=== PATIENT | female | born 1990 | race Asian ===

== ENCOUNTER 2019-07-05 02:52 | Emergency (ER) | payer OTHER ==
[~2019-07-05] VITALS: Ht 160 cm; Wt 68.0 kg
[2019-07-05 03:10] VITALS: BP 151/109
--- NOTE | 2019-07-05 03:10 | NUR ---
ED Nurse Note: pT AMBULATED TO ED FROM HOME C/O 01/04 HEADACHE LASTING SINCE TUESDAY, PT TRIED IBUPROFEN TO NO RELIEF, WAS SEEN YESTERDAY AT URGENT CARE FOR SAME REASON, NO RELIEF. vss, pT IS A&OX4, ERMD AT BEDSIDE
--- NOTE | 2019-07-05 03:11 | Emergency Room Report ---
History of Present Illness General Chief Complaint: Headache Source: Patient Present Illness HPI Disclaimer: Please note that this report is being documented using [employer] technology. This can lead to erroneous entry secondary to incorrect interpretation by the dictating instrument. HPI: 28-year-old female history of migraines presents for evaluation of headache. Complains of throbbing 10/10 headache over the past few days. Trying to control at home with ibuprofen and was seen at urgent care today where she received a drip of some sort. She does not know what medication was and that drip. Resolved her headache for a brief time but is now returning. Throbbing around the eyes and the temples mostly. Consistent with prior headaches though this is lasting longer than usual. She was vomiting yesterday but reports only nausea without vomiting today. Denies possibility of - tested negative earlier at urgent care. Otherwise denies fever, chills, neck pain or stiffness, chest pain, shortness of breath, abdominal pain , diarrhea, cough. PMH: Migraine headaches PSH: Denies Allergies: Denies Social Hx: Denies Allergies: Coded Allergies: No Known Allergies (Unverified , 07/05/19) COVID-19 Screening Contact w/high risk pt: No Recent Travel to affected area: No Experienced COVID-19 symptoms?: No Patient History Last Menstrual Period: 06/20/19 Now: No : 0 Para: 0 Nursing Documentation-PMH Past Medical History: No Stated History Review of Systems All Other Systems: negative except mentioned in HPI Physical Exam Vital Signs Date Time Temp Pulse Resp B/P (MAP) Pulse Ox O2 Delivery O2 Flow Rate FiO2 07/05/19 02:58 98.2 80 16 151/109 (123) 94 Room Air General: Awake and alert, no acute distress HEENT: NC/AT. EOMI. PERRLA. Visual joya are full. No nystagmus. Facial expressions are symmetrical. No facial droop. Cardiovascular: RRR. S1 and S2 normal. No murmur appreciated Resp: Normal work of breathing. No cough, wheezing or crackles appreciated Abdomen: Abdomen is soft, nondistended. Nontender Skin: Intact. No abrasions, laceration or rash over the exposed skin MSK: Normal tone and bulk. Moving all extremities. No obvious deformity. There is no drift in the upper or lower extremities bilaterally. Neuro: Awake and alert. Mentating appropriately. Facial expression symmetrical. No dysarthria. Sensation to light touch is intact over the upper and lower extremities. The patient has intact speech with good repetition, comprehension. Fund of knowledge is full. No aphasia, no neglect. NIH: 0 Medical Decision Making Diagnostic Impression: Primary Impression: Migraine ER Course 28-year-old female presenting for evaluation of headache. Differential includes but is not limited to generalized headache, migraine headache, tension headache, cluster headache, giant cell arteritis, vasculitis, meningitis to name a few. Patient is nontoxic-appearing, very little concern for intracranial process or infectious process. Given her history of migraines and its typical presentation believe this is a migraine headache. Attempted a sphenopalatine block with lidocaine the patient did have some response though required additional treatment with IV fluids, Toradol, Reglan and Benadryl. Her headache is now significantly improved. Currently a 4/10 and continues to get better. Do not believe she requires emergent imaging at this time. Will prescribe Imitrex and continue Excedrin. She will follow-up with her PMD on an outpatient basis. I recommended referral to neurology as she gets these headaches regularly. Patient is well-appearing and stable for outpatient follow -up. Discussed reasons to return to the emergency department. She understands and agrees the treatment plan. Last Vital Signs Date Time Temp Pulse Resp B/P (MAP) Pulse Ox O2 Delivery O2 Flow Rate FiO2 07/05/19 02:58 98.2 80 16 151/109 (123) 94 Room Air Disposition: HOME, SELF-CARE Condition: Improved Scripts Sumatriptan Succinate* (IMITREX*) 50 Mg Tablet 50 MG ORAL DAILY PRN MIGRAINE, #10 TAB Prov: Patricio Pugh MD 07/05/19 Aspirin/Acetaminophen/Caffeine (EXCEDRIN MIGRAINE CAPLET) 1 Each Tablet 1 EACH PO TID for 10 Days, #30 TAB Prov: Patricio Pugh MD 07/05/19 Patricio Pugh MD Jul 05, 2019 03:11
[2019-07-05] MEDS ORDERED: Lidocaine 4% Amp 5ml INJ ONE (03:15)
[2019-07-05] MEDS ORDERED: Lidocaine 2% 100mg/5ml Carp ONE (03:30)
[2019-07-05] MEDS ORDERED: Metoclopramide 10mg/2ml Inj IVP ONE (04:00)
[2019-07-05] MEDS ORDERED: DiphenhydrAMINE 50mg/ml Inj IVP ONE (04:00)
[2019-07-05] MEDS ORDERED: Ketorolac 30mg Inj IV ONE (04:00)
[2019-07-05] MEDS ORDERED: IMITREX50 MG ORAL (05:08)
[2019-07-05] MEDS ORDERED: EXCEDRIN MIGRA1 EAC1 PO (05:08)
[2019-07-05 05:30] VITALS: BP 151/109
[2019-07-05] MEDS ORDERED: Acetaminophen 500mg (ES) tab ORAL ONE (05:30)
[2019-07-05] MEDS ORDERED: Lidocaine 2% 100mg/5ml Carp IV ONE (05:30)
--- NOTE | 2019-07-05 05:30 | NUR ---
ER DISCHARGE NOTE: Patient is cleared to be discharged per ERMD, pt is aox4, on room air, with stable vital signs. pt was given dc and prescription instructions, pt was able to verbalize understanding, pt id band and iv site removed without complications. pt is able to ambulate with steady gait. pt took all belongings.
== END 2019-07-05 05:30 | disposition home or self-care (01) ==
LOC: EMR 03:25
DX: G43.909 Migraine, unspecified, not intractable, without status migrainosus (principal); R11.0 Nausea
CPT/HCPCS: 96361; 96374; 96375; 99284; J1200; J1885; J2765; J7030

== ENCOUNTER 2019-07-07 09:05 | Emergency (ER) | payer OTHER ==
[~2019-07-07] VITALS: Ht 160 cm; Wt 68.0 kg
[~2019-07-07 09:05] MED LIST: EXCEDRIN MIGRA1 EAC1 PO; IMITREX50 MG ORAL
--- NOTE | 2019-07-07 09:15 | NUR ---
ED Nurse Note: Pt ambulated to ED from home. per pt., she was seen by Dr. Pugh on 07/04 told her that she can get CT head for her headaches if it is getting worse Pt. cannot get a referral for a neurology b/c she does not have a pcp. VSS, afebrile on triage. Placed on bed.
[2019-07-07] MEDS ORDERED: Ketorolac 30mg Inj ONE (09:26)
[2019-07-07] MEDS ORDERED: Metoclopramide 10mg/2ml Inj ONE (09:26)
[2019-07-07] MEDS ORDERED: Ketorolac 30mg Inj IV ONE (09:30)
[2019-07-07] MEDS ORDERED: Metoclopramide 10mg/2ml Inj IVP ONE (09:30)
--- NOTE | 2019-07-07 09:38 | Emergency Room Report ---
History of Present Illness General Chief Complaint: Headache Source: Patient Present Illness HPI 28-year-old female presents ED for headache. Started a few days ago. Frontal, throbbing, 8 out of 10, nonradiating. Notes pulsing sensation behind both eyes. Denies nausea or vomiting. Denies fevers or chills. Denies neck stiffness. Was seen in urgent care a few days ago. Was seen yesterday in ED. Was treated and subsequently discharged. Patient was offered option for CT yesterday but she declined. States that her headache is returning. States that her mother has a history of chronic migraines. Denies sick contacts or recent travel. Denies fevers or chills. Denies cough or congestion. No other aggravating relieving factors. Denies any other associated symptoms Allergies: Coded Allergies: No Known Allergies (Unverified , 07/05/19) COVID-19 Screening Contact w/high risk pt: No Recent Travel to affected area: No Experienced COVID-19 symptoms?: No Patient History Past Medical History: none Past Surgical History: none Pertinent Family History: none Social History: Denies: smoking, alcohol use, drug use Last Menstrual Period: 05/31/19 Now: No Immunizations: UTD Reviewed Nursing Documentation: PMH: Agreed; PSxH: Agreed Nursing Documentation-PMH Past Medical History: No History, Except For Review of Systems All Other Systems: negative except mentioned in HPI Physical Exam Vital Signs Date Time Temp Pulse Resp B/P (MAP) Pulse Ox O2 Delivery O2 Flow Rate FiO2 07/07/19 09:09 98.1 86 19 140/94 (109) 95 Room Air Sp02 EP Interpretation: reviewed, normal General Appearance: no apparent distress, alert, GCS 15, non-toxic Head: normocephalic, atraumatic Eyes: bilateral eye normal inspection, bilateral eye PERRL ENT: hearing grossly normal, normal pharynx, no angioedema, normal voice Neck: full range of motion, no meningismus, supple/symm/no masses Respiratory: chest non-tender, lungs clear, normal breath sounds, speaking full sentences Cardiovascular #1: regular rate, rhythm, no edema Cardiovascular #2: 2+ carotid (R), 2+ carotid (L), 2+ radial (R), 2+ radial (L) , 2+ dorsalis pedis (R), 2+ dorsalis pedis (L) Gastrointestinal: normal bowel sounds, non tender, soft, non-distended, no guarding, no rebound Rectal: deferred Genitourinary: normal inspection, no CVA tenderness Musculoskeletal: back normal, normal range of motion, gait/station normal, non- tender Neurologic: alert, motor strength/tone normal, retail aide III-XII nml as tested, oriented x3, sensory intact, cerebellar normal, responsive, speech normal Psychiatric: judgement/insight normal, memory normal, mood/affect normal, no suicidal/homicidal ideation Reflexes: 3+ bicep (R), 3+ bicep (L), 3+ tricep (R), 3+ tricep (L), 3+ knee (R) , 3+ knee (L) Lymphatic: no adenopathy Medical Decision Making Diagnostic Impression: Primary Impression: Migraine Qualified Codes: G43.909 - Migraine, unspecified, not intractable, without status migrainosus ER Course Hospital Course 28-year-old female presents with persistent headaches. Seen here 2 days ago for headache Differential diagnoses include: tension headache, migraine, dehydration, intracranial bleed Clinical course Patient placed on stretcher. After initial history and physical I ordered IV fluids, Reglan, Toradol and CT head CT head negative. On reassessment pain improved. No focal deficits. Family history of migraine. Exam consistent with migraine. Will discharge home. She does not have a PMD. I will provide referrals patient would benefit from outpatient neurology evaluation Upon reassessment patient states pain has improved. Patient feels better wishes to go home. Given the lack of fever, nuchal rigidity or neurological findings my suspicion for intracranial pathology is low patient be safely discharged to home. i. I feel this is a highly complex case requiring extensive working including EKG/Rhythm strip, Xray/CT/US, Blood/urine lab work, repeat exams while in ED, and administration of strong opiates/narcotics for pain control, admission to hospital or close patient follow up. Diagnosis - migraine stable and discharged to home with Rx Reglan. f/up with PMD/neurology. return to ED if symptoms recur/worsen. CT/MRI/US Diagnostic Results CT/MRI/US Diagnostic Results : Imaging Test Ordered: CT head Impression EXAM: CT Head Without Intravenous Contrast CLINICAL HISTORY: H/A TECHNIQUE: Axial computed tomography images of the head/brain without intravenous contrast. CTDI is 53.4 mGy and DLP is 1018.8 mGy-cm. One or more of the following dose reduction techniques were used: automated exposure control, adjustment of the mA and/or kV according to patient size, use of iterative reconstruction technique. COMPARISON: No relevant prior studies available. FINDINGS: Brain: Unremarkable. No hemorrhage. No significant white matter disease. No edema. Ventricles: Unremarkable. No ventriculomegaly. Bones/joints: Unremarkable. No acute fracture. Soft tissues: Unremarkable. Sinuses: Unremarkable as visualized. No acute sinusitis. Mastoid air cells: Unremarkable as visualized. No mastoid effusion. IMPRESSION: Normal head/brain CT. Last Vital Signs Date Time Temp Pulse Resp B/P (MAP) Pulse Ox O2 Delivery O2 Flow Rate FiO2 07/07/19 09:09 98.1 86 19 140/94 (109) 95 Room Air Status: improved Disposition: HOME, SELF-CARE Condition: Stable Scripts Metoclopramide Hcl* (REGLAN*) 10 Mg Tablet 10 MG ORAL THREE TIMES A DAY, #20 TAB Prov: Nixon Dao MD 07/07/19 Referrals: NOT CHOSEN IPA/,REFERRING (PCP) Nixon Dao MD Jul 07, 2019 09:38
--- NOTE | 2019-07-07 09:42 | NUR ---
ED Nurse Note: Pt went on CT via [facility] accompanied by tech
[2019-07-07 09:44] VITALS: BP 140/94
--- NOTE | 2019-07-07 10:33 | Diagnostic Imaging Report ---
EXAM: CT Head Without Intravenous Contrast CLINICAL HISTORY: H/A TECHNIQUE: Axial computed tomography images of the head/brain without intravenous contrast. CTDI is 53.4 mGy and DLP is 1018.8 mGy-cm. One or more of the following dose reduction techniques were used: automated exposure control, adjustment of the mA and/or kV according to patient size, use of iterative reconstruction technique. COMPARISON: No relevant prior studies available. FINDINGS: Brain: Unremarkable. No hemorrhage. No significant white matter disease. No edema. Ventricles: Unremarkable. No ventriculomegaly. Bones/joints: Unremarkable. No acute fracture. Soft tissues: Unremarkable. Sinuses: Unremarkable as visualized. No acute sinusitis. Mastoid air cells: Unremarkable as visualized. No mastoid effusion. IMPRESSION: Normal head/brain CT.
[2019-07-07] MEDS ORDERED: REGLAN10 MG ORAL (11:14)
[2019-07-07 11:30] VITALS: BP 138/70
== END 2019-07-07 11:30 | disposition home or self-care (01) ==
LOC: EMR 09:23
DX: G43.909 Migraine, unspecified, not intractable, without status migrainosus (principal)
CPT/HCPCS: 70450; 96361; 96374; 96375; 99284; J1885; J2765; J7030